=== PATIENT | male | born 1970 | race Caucasian/White ===

== ENCOUNTER 2017-08-26 01:44 | Emergency (ER) | payer OTHER ==
[~2017-08-26] VITALS: Ht 175.3 cm; Wt 176.9 kg
[~2017-08-26 01:44] MED LIST: FENOFIBRATE160 MG; HYDROCODONE-AP1 EAC6 PO; HYDROXYCHLOROQ200 M1; IBUPROFEN 800800 M1 PO; LEVOTHYROXIN0.025 MG; NORCO 5-325 TA1 EACH PO; ONE DAILY WITH1 EACH; PRINIVIL20 MG; ROBAXIN 750 MG750 M1 PO
[2017-08-26] MEDS ORDERED: HYDROCODONE-AP1 EAC6 PO (02:21)
[2017-08-26] MEDS ORDERED: MEDROLDOSEPACK PO (02:21)
[2017-08-26 02:28] VITALS: BP 137/64
== END 2017-08-26 02:30 | disposition home or self-care (01) ==
LOC: M.ERS 01:44
DX: M77.9 Enthesopathy, unspecified (principal); Z86.14 Personal history of Methicillin resistant Staphylococcus aureus infection; Z96.643 Presence of artificial hip joint, bilateral